=== PATIENT | male | born 1945 | race Caucasian/White ===

== ENCOUNTER 2022-07-04 18:32 | Inpatient (IN) | payer OTHER, MEDICARE ==
[2022-07-04] MEDS ORDERED: PIPERACILLIN/TAZOB 4.5 GM 4.5 GM in DEXTROSE 5%-WATER 100 ML IVPB ONE (18:53)
[2022-07-04] MEDS ORDERED: VANCOMYCIN 1 GM in D5W (PRE-DOCKED) 1,000 MG/250 ML (RESTRICTED TO ID ONLY IVPB ONE (18:53)
[2022-07-04] MEDS ORDERED: PIPERACILLIN/TAZOBACTAM 4.5 GM VIAL IVPB ONE (18:57)
[2022-07-04] MEDS ORDERED: VANCOMYCIN 1,000 MG VIAL (RESTRICTED TO ID ONLY) ONE (18:58)
[2022-07-04 19:27] LABS: HEMOGLOBIN 12.3 G/dL (11.7-16.9); MCH 28.1 pg (25.7-33.7); MCHC 34.2 g/dl (32.0-35.9); MEAN CELL VOLUME 82.3 fl (80-96); MEAN PLT VOLUME 7.9 fl (7.5-11.1); PLATELET COUNT 170.1 10^3/uL (134-434); RBC 4.38 10^6/uL (4.00-5.60); RDW 16.1 % (11.9-15.9); WHITE BLOOD COUNT 12.7 10^3/uL (4.0-10.8)
[2022-07-04] MEDS ORDERED: ACETAMINOPHEN 1000 MG/100 ML BAG IVPB ONE (19:32)
[2022-07-04 19:36] LABS: INR 2.58 (0.83-1.09)
[2022-07-04] MEDS ORDERED: ACETAMINOPHEN INJECTION 100 ML IVPB ONE (19:48)
[2022-07-04 19:51] LABS: BILIRUBIN,TOTAL 0.9 mg/dl (0.2-1); CALCIUM 8.9 mg/dl (8.5-10); TOT PROT 7.4 g/dl (6.4-8.2)
[2022-07-04 20:59] LABS: PLATELET ESTIMATE ADEQUATE
[2022-07-04] MEDS ORDERED: DOCUSATE SODIUM 100 MG CAPSULE (FP) PO PRN (21:03)
[2022-07-04 22:55] VITALS: BMI 24.2
[2022-07-04] MEDS: SODIUM CHLORIDE 1,000 ML IV SCH (23:08)
[2022-07-05] MEDS ORDERED: PIPERACILLIN/TAZOB 2.25 GM 2.25 GM in DEXTROSE 5%-WATER - 50 ML IVPB SCH (02:00)
[2022-07-05] MEDS ORDERED: ACETAMINOPHEN 325 MG TABLET (FP) PO PRN (02:00)
[2022-07-05] MEDS ORDERED: ACETAMINOPHEN 1000 MG/100 ML BAG IVPB PRN (02:00)
[2022-07-05 08:15] LABS: INR 2.41 (0.83-1.09)
[2022-07-05 08:53] LABS: CALCIUM 8.4 mg/dl (8.5-10); CREATININE 1.7 mg/dl (0.55-1.3); PHOSPHOROUS 2.5 mg/dl (2.5-4.9)
[2022-07-05] MEDS: TAMSULOSIN HCL 0.4 MG CAP PO SCH ×2 (09:32→21:08)
[2022-07-05] MEDS: PIPERACILLIN/TAZOB 2.25 GM 2.25 GM in DEXTROSE 5%-WATER - 50 ML IVPB SCH ×3 (09:32→21:08)
[2022-07-05] MEDS: HYDROXYCHLOROQUINE SO4 200 MG TABLET (FP) PO SCH (09:33)
[2022-07-05] MEDS: FINASTERIDE 5 MG TABLET (FP) PO SCH (09:33)
[2022-07-05 09:41] LABS: BASO % 0.3 % (0-2.0); EOS % 0.7 % (0-4.5); HEMOGLOBIN 11.2 GM/dL (11.7-16.9); MCH 27.2 pg (25.7-33.7); MCHC 33.9 g/dl (32.0-35.9); MEAN CELL VOLUME 80.2 fl (80-96); MEAN PLT VOLUME 7.1 fl (7.5-11.1); MONO % 9.1 % (3.8-10.2); NEUT % 85.9 % (42.8-82.8); PLATELET COUNT 162 10^3/uL (134-434); RBC 4.11 M/mm3 (4.00-5.60); WHITE BLOOD COUNT 8.6 K/mm3 (4.0-10.0)
[2022-07-05] MEDS ORDERED: VANCOMYCIN 1 GM in D5W (PRE-DOCKED) 1,000 MG/250 ML (RESTRICTED TO ID ONLY IVPB SCH (10:00)
[2022-07-05 10:26] LABS: ERYTHROCYTE SEDIMENTATION RATE 47 mm/hr (0-20)
[2022-07-05] MEDS: WARFARIN NA 3 MG TABLET PO SCH (19:08)
[2022-07-05 20:48] LABS: URIC ACID CRYSTALS FEW /hpf (NONE SEEN)
[2022-07-06] MEDS: PIPERACILLIN/TAZOB 2.25 GM 2.25 GM in DEXTROSE 5%-WATER - 50 ML IVPB SCH ×4 (03:15→21:38)
[2022-07-06 08:42] LABS: ALBUMIN 3.1 g/dl (3.4-5.0); BILIRUBIN,TOTAL 1.1 mg/dl (0.2-1); CALCIUM 8.1 mg/dl (8.5-10); CREATININE 1.9 mg/dl (0.55-1.3); TOT PROT 6.3 g/dl (6.4-8.2)
[2022-07-06] MEDS: HYDROXYCHLOROQUINE SO4 200 MG TABLET (FP) PO SCH (09:40)
[2022-07-06] MEDS: VANCOMYCIN 1 GRAM (PRE-DOCKED) 1,000 MG/250 ML BAG IVPB SCH (09:40)
[2022-07-06] MEDS: TAMSULOSIN HCL 0.4 MG CAP PO SCH ×2 (09:40→21:39)
[2022-07-06] MEDS: FINASTERIDE 5 MG TABLET (FP) PO SCH (09:40)
[2022-07-06 09:55] LABS: BASO % 0.3 % (0-2.0); HEMATOCRIT 32.6 % (35.4-49); HEMOGLOBIN 10.9 GM/dL (11.7-16.9); LYMPH % 4.4 % (8-40); MCH 26.8 pg (25.7-33.7); MCHC 33.6 g/dl (32.0-35.9); MEAN CELL VOLUME 79.8 fl (80-96); MEAN PLT VOLUME 7.2 fl (7.5-11.1); MONO % 9.3 % (3.8-10.2); PLATELET COUNT 180 10^3/uL (134-434); RBC 4.08 M/mm3 (4.00-5.60); RDW 16.2 % (11.9-15.9); WHITE BLOOD COUNT 9.3 K/mm3 (4.0-10.0)
[2022-07-06] MEDS ORDERED: VANCOMYCIN 1,000 MG in DEXTROSE 5%-WATER - 250 ML IVPB SCH (10:00)
[2022-07-06] MEDS: LACTOBACILLUS ACIDOPHILUS 1 TABLET PO SCH (13:32)
[2022-07-06] MEDS: WARFARIN NA 2.5 MG TABLET PO SCH (17:32)
[2022-07-06] MEDS: SODIUM CHLORIDE 1,000 ML IV SCH (17:34)
[2022-07-07] MEDS: PIPERACILLIN/TAZOB 2.25 GM 2.25 GM in DEXTROSE 5%-WATER - 50 ML IVPB SCH ×4 (03:46→21:21)
[2022-07-07 09:09] LABS: CALCIUM 7.9 mg/dl (8.5-10); CREATININE 1.5 mg/dl (0.55-1.3); MAGNESIUM 2.1 mg/dL (1.8-2.4); PHOSPHOROUS 2.1 mg/dl (2.5-4.9)
[2022-07-07 09:50] LABS: BASO % 0.4 % (0-2.0); EOS % 2.4 % (0-4.5); HEMATOCRIT 30.1 % (35.4-49); HEMOGLOBIN 10.1 GM/dL (11.7-16.9); LYMPH % 6.4 % (8-40); MCH 27.1 pg (25.7-33.7); MCHC 33.7 g/dl (32.0-35.9); MEAN CELL VOLUME 80.3 fl (80-96); MEAN PLT VOLUME 7.3 fl (7.5-11.1); MONO % 10.4 % (3.8-10.2); NEUT % 80.4 % (42.8-82.8); PLATELET COUNT 177 10^3/uL (134-434); RBC 3.74 M/mm3 (4.00-5.60); RDW 15.8 % (11.9-15.9); WHITE BLOOD COUNT 6.5 K/mm3 (4.0-10.0)
[2022-07-07] MEDS ORDERED: POTASSIUM PHOSPHATE 15 MM in SODIUM CHLORIDE 250 ML IVPB ONE (10:00)
[2022-07-07] MEDS ORDERED: SODIUM CHLORIDE 0.45% 1,000 ML IV SCH (11:00)
[2022-07-07] MEDS: TAMSULOSIN HCL 0.4 MG CAP PO SCH ×2 (11:29→21:21)
[2022-07-07] MEDS: FINASTERIDE 5 MG TABLET (FP) PO SCH (11:29)
[2022-07-07] MEDS: LACTOBACILLUS ACIDOPHILUS 1 TABLET PO SCH (11:29)
[2022-07-07] MEDS: HYDROXYCHLOROQUINE SO4 200 MG TABLET (FP) PO SCH (11:29)
[2022-07-07] MEDS: VANCOMYCIN 1 GRAM (PRE-DOCKED) 1,000 MG/250 ML BAG IVPB SCH ×2 (11:30→22:20)
[2022-07-07] MEDS: WARFARIN NA 3 MG TABLET PO SCH (18:16)
[2022-07-08] MEDS: PIPERACILLIN/TAZOB 2.25 GM 2.25 GM in DEXTROSE 5%-WATER - 50 ML IVPB SCH ×4 (03:24→20:56)
[2022-07-08] MEDS: TAMSULOSIN HCL 0.4 MG CAP PO SCH (08:32)
[2022-07-08 08:33] LABS: INR 4.88 (0.83-1.09)
[2022-07-08 08:47] LABS: CREATININE 1.6 mg/dl (0.55-1.3); PHOSPHOROUS 2.7 mg/dl (2.5-4.9)
[2022-07-08 09:56] LABS: BASO % 0.8 % (0-2.0); EOS % 3.3 % (0-4.5); HEMATOCRIT 29.3 % (35.4-49); HEMOGLOBIN 10.1 GM/dL (11.7-16.9); LYMPH % 6.3 % (8-40); MCH 27.4 pg (25.7-33.7); MCHC 34.4 g/dl (32.0-35.9); MEAN CELL VOLUME 79.5 fl (80-96); MEAN PLT VOLUME 7.2 fl (7.5-11.1); MONO % 9.6 % (3.8-10.2); PLATELET COUNT 215 10^3/uL (134-434); RBC 3.68 M/mm3 (4.00-5.60); RDW 16.2 % (11.9-15.9); WHITE BLOOD COUNT 5.7 K/mm3 (4.0-10.0)
[2022-07-08] MEDS: LACTOBACILLUS ACIDOPHILUS 1 TABLET PO SCH (09:57)
[2022-07-08] MEDS: HYDROXYCHLOROQUINE SO4 200 MG TABLET (FP) PO SCH (09:57)
[2022-07-08] MEDS: FINASTERIDE 5 MG TABLET (FP) PO SCH (09:57)
[2022-07-08] MEDS: guaiFENesin/D-METHORPHAN HB 10 ML UNIT-DOSE CUPS PO PRN ×3 (09:57→21:05)
[2022-07-08] MEDS: FLUTICASONE PROP 0.05% 16 GM NASAL SPRAY NS SCH ×2 (10:02→21:03)
[2022-07-08] MEDS: VANCOMYCIN 1 GRAM (PRE-DOCKED) 1,000 MG/250 ML BAG IVPB SCH ×2 (10:03→23:36)
[2022-07-08] MEDS: BENZOCAINE/MENTH/CETYLPYRD CL 1 EACH LOZENGE MM PRN (10:03)
[2022-07-09] MEDS: PIPERACILLIN/TAZOB 2.25 GM 2.25 GM in DEXTROSE 5%-WATER - 50 ML IVPB SCH ×2 (03:35→09:01)
[2022-07-09] MEDS: TAMSULOSIN HCL 0.4 MG CAP PO SCH ×3 (07:15→21:20)
[2022-07-09 08:50] LABS: INR 4.65 (0.83-1.09); PROTHROMBIN TIME (PATIENT) 54.3 SEC (9.7-13.0)
[2022-07-09] MEDS: LACTOBACILLUS ACIDOPHILUS 1 TABLET PO SCH (08:59)
[2022-07-09] MEDS: HYDROXYCHLOROQUINE SO4 200 MG TABLET (FP) PO SCH (09:00)
[2022-07-09] MEDS: FINASTERIDE 5 MG TABLET (FP) PO SCH (09:00)
[2022-07-09 09:04] LABS: BILIRUBIN,TOTAL 0.6 mg/dl (0.2-1); CALCIUM 8.6 mg/dl (8.5-10); CREATININE 1.7 mg/dl (0.55-1.3); PHOSPHOROUS 2.5 mg/dl (2.5-4.9); TOT PROT 6.5 g/dl (6.4-8.2)
[2022-07-09] MEDS: FLUTICASONE PROP 0.05% 16 GM NASAL SPRAY NS SCH ×2 (09:04→21:19)
[2022-07-09 09:28] LABS: BASO % 0.8 % (0-2.0); EOS % 3.5 % (0-4.5); HEMATOCRIT 32.5 % (35.4-49); HEMOGLOBIN 10.6 GM/dL (11.7-16.9); LYMPH % 6.8 % (8-40); MCH 26.3 pg (25.7-33.7); MCHC 32.8 g/dl (32.0-35.9); MEAN CELL VOLUME 80.2 fl (80-96); MEAN PLT VOLUME 6.7 fl (7.5-11.1); MONO % 9.8 % (3.8-10.2); NEUT % 79.1 % (42.8-82.8); PLATELET COUNT 254 10^3/uL (134-434); RBC 4.05 M/mm3 (4.00-5.60); RDW 16.2 % (11.9-15.9); WHITE BLOOD COUNT 6.5 K/mm3 (4.0-10.0)
[2022-07-09] MEDS: AMPICILLIN NA/SULBACTAM NA 3 GM in SODIUM CHLORIDE 100 ML IVPB SCH ×2 (09:51→17:48)
[2022-07-09] MEDS: BENZOCAINE/MENTH/CETYLPYRD CL 1 EACH LOZENGE MM PRN (22:02)
[2022-07-09] MEDS: guaiFENesin/D-METHORPHAN HB 10 ML UNIT-DOSE CUPS PO PRN (22:02)
[2022-07-10] MEDS: AMPICILLIN NA/SULBACTAM NA 3 GM in SODIUM CHLORIDE 100 ML IVPB SCH ×3 (01:44→17:41)
[2022-07-10] MEDS: TAMSULOSIN HCL 0.4 MG CAP PO SCH ×2 (07:59→21:12)
[2022-07-10] MEDS: BENZOCAINE/MENTH/CETYLPYRD CL 1 EACH LOZENGE MM PRN ×2 (08:06→21:12)
[2022-07-10 08:24] LABS: CALCIUM 8.3 mg/dl (8.5-10); CREATININE 1.6 mg/dl (0.55-1.3)
[2022-07-10 08:25] LABS: INR 4.16 (0.83-1.09); PROTHROMBIN TIME (PATIENT) 48.5 SEC (9.7-13.0)
[2022-07-10] MEDS: guaiFENesin/D-METHORPHAN HB 10 ML UNIT-DOSE CUPS PO PRN ×2 (08:26→21:12)
[2022-07-10] MEDS: HYDROXYCHLOROQUINE SO4 200 MG TABLET (FP) PO SCH (10:03)
[2022-07-10] MEDS: LACTOBACILLUS ACIDOPHILUS 1 TABLET PO SCH (10:03)
[2022-07-10] MEDS: FINASTERIDE 5 MG TABLET (FP) PO SCH (10:03)
[2022-07-10] MEDS: FLUTICASONE PROP 0.05% 16 GM NASAL SPRAY NS SCH ×2 (10:11→21:12)
[2022-07-10 13:18] LABS: BASO % 0.8 % (0-2.0); EOS % 3.1 % (0-4.5); HEMATOCRIT 29.6 % (35.4-49); HEMOGLOBIN 9.9 GM/dL (11.7-16.9); LYMPH % 7.6 % (8-40); MCH 26.7 pg (25.7-33.7); MCHC 33.3 g/dl (32.0-35.9); MEAN CELL VOLUME 80.1 fl (80-96); MONO % 11.4 % (3.8-10.2); NEUT % 77.1 % (42.8-82.8); PLATELET COUNT 212 10^3/uL (134-434); RDW 16.2 % (11.9-15.9); WHITE BLOOD COUNT 4.9 K/mm3 (4.0-10.0)
[2022-07-11] MEDS: AMPICILLIN NA/SULBACTAM NA 3 GM in SODIUM CHLORIDE 100 ML IVPB SCH ×3 (01:50→21:56)
[2022-07-11 09:02] LABS: HEMATOCRIT 29.2 % (35.4-49); HEMOGLOBIN 9.5 G/dL (11.7-16.9); MCHC 32.5 g/dl (32.0-35.9); MEAN PLT VOLUME 7.4 fl (7.5-11.1); PLATELET COUNT 174.2 10^3/uL (134-434); RBC 3.52 10^6/uL (4.00-5.60); RDW 16.6 % (11.9-15.9); WHITE BLOOD COUNT 4.5 10^3/uL (4.0-10.8)
[2022-07-11 09:10] LABS: CALCIUM 8.3 mg/dl (8.5-10); CREATININE 1.5 mg/dl (0.55-1.3); MAGNESIUM 1.9 mg/dL (1.8-2.4); PHOSPHOROUS 2.4 mg/dl (2.5-4.9)
[2022-07-11] MEDS: TAMSULOSIN HCL 0.4 MG CAP PO SCH ×2 (09:23→21:55)
[2022-07-11] MEDS: FINASTERIDE 5 MG TABLET (FP) PO SCH (09:23)
[2022-07-11] MEDS: LACTOBACILLUS ACIDOPHILUS 1 TABLET PO SCH (09:23)
[2022-07-11] MEDS: HYDROXYCHLOROQUINE SO4 200 MG TABLET (FP) PO SCH (09:23)
[2022-07-11] MEDS: FLUTICASONE PROP 0.05% 16 GM NASAL SPRAY NS SCH ×2 (09:25→21:55)
[2022-07-11] MEDS: guaiFENesin/D-METHORPHAN HB 10 ML UNIT-DOSE CUPS PO PRN (09:34)
[2022-07-11] MEDS: BENZOCAINE/MENTH/CETYLPYRD CL 1 EACH LOZENGE MM PRN ×2 (09:34→21:56)
[2022-07-11 09:45] LABS: INR 2.79 (0.83-1.09); PROTHROMBIN TIME (PATIENT) 32.4 SEC (9.7-13.0)
[2022-07-11 10:58] LABS: PLATELET ESTIMATE NORMAL
[2022-07-11] MEDS ORDERED: AMPICILLIN NA/SULBACTAM NA 3 GM in SODIUM CHLORIDE 100 ML IVPB SCH (16:45)
[2022-07-11] MEDS: WARFARIN NA 2.5 MG TABLET PO SCH (17:48)
[2022-07-12] MEDS: AMPICILLIN NA/SULBACTAM NA 3 GM in SODIUM CHLORIDE 100 ML IVPB SCH ×3 (05:54→22:15)
[2022-07-12 08:10] LABS: CALCIUM 8.3 mg/dl (8.5-10); CREATININE 1.6 mg/dl (0.55-1.3); PHOSPHOROUS 2.4 mg/dl (2.5-4.9)
[2022-07-12 08:13] LABS: INR 2.65 (0.83-1.09); PROTHROMBIN TIME (PATIENT) 30.8 SEC (9.7-13.0)
[2022-07-12 09:28] LABS: BASO % 0.9 % (0-2.0); EOS % 2.4 % (0-4.5); HEMATOCRIT 27.5 % (35.4-49); HEMOGLOBIN 9.2 GM/dL (11.7-16.9); LYMPH % 9.1 % (8-40); MCH 26.6 pg (25.7-33.7); MCHC 33.4 g/dl (32.0-35.9); MEAN CELL VOLUME 79.5 fl (80-96); MEAN PLT VOLUME 6.6 fl (7.5-11.1); MONO % 11.2 % (3.8-10.2); NEUT % 76.4 % (42.8-82.8); PLATELET COUNT 194 10^3/uL (134-434); RBC 3.47 M/mm3 (4.00-5.60); RDW 15.6 % (11.9-15.9); WHITE BLOOD COUNT 4.3 K/mm3 (4.0-10.0)
[2022-07-12] MEDS: TAMSULOSIN HCL 0.4 MG CAP PO SCH ×2 (09:42→22:15)
[2022-07-12] MEDS: FINASTERIDE 5 MG TABLET (FP) PO SCH (09:42)
[2022-07-12] MEDS: HYDROXYCHLOROQUINE SO4 200 MG TABLET (FP) PO SCH (09:43)
[2022-07-12] MEDS: LACTOBACILLUS ACIDOPHILUS 1 TABLET PO SCH (09:43)
[2022-07-12] MEDS: FLUTICASONE PROP 0.05% 16 GM NASAL SPRAY NS SCH ×2 (09:44→22:15)
[2022-07-12] MEDS: guaiFENesin/D-METHORPHAN HB 10 ML UNIT-DOSE CUPS PO PRN (09:47)
[2022-07-12] MEDS: BENZOCAINE/MENTH/CETYLPYRD CL 1 EACH LOZENGE MM PRN (09:47)
[2022-07-12] MEDS: WARFARIN NA 3 MG TABLET PO SCH (17:34)
[2022-07-12 19:11] VITALS: BP 169/77; PULSE 67; RESP 18; TEMP 98.1
== END 2022-07-12 22:21 | disposition home or self-care (01) | DRG 580 ==
LOC: FER 18:32 → FM/S 20:57
PROVIDERS: ADMIT Internal Medicine; ATTEND Internal Medicine
PROC: 0JH63XZ Insertion of Tunneled Vascular Access Device into Chest Subcutaneous Tissue and Fascia, Percutaneous Approach (ICD-10-PCS; principal; 2022-07-09)
PROC: 02HV33Z Insertion of Infusion Device into Superior Vena Cava, Percutaneous Approach (ICD-10-PCS; 2022-07-09)
PROC: B548ZZA Ultrasonography of Superior Vena Cava, Guidance (ICD-10-PCS; 2022-07-09)
DX: L03.116 Cellulitis of left lower limb (principal); D68.61 Antiphospholipid syndrome; N17.9 Acute kidney failure, unspecified; L97.929 Non-pressure chronic ulcer of unspecified part of left lower leg with unspecified severity; Z86.718 Personal history of other venous thrombosis and embolism; I12.9 Hypertensive chronic kidney disease with stage 1 through stage 4 chronic kidney disease, or unspecified chronic kidney disease; N18.9 Chronic kidney disease, unspecified; N21.0 Calculus in bladder; D64.9 Anemia, unspecified; N40.0 Benign prostatic hyperplasia without lower urinary tract symptoms
CPT/HCPCS: 36415; 36558; 71046-TC-FY; 73630-TC-LT; 73718-TC-LT; 80048; 80053; 80061; 81003; 81015; 82436; 82570; 83036; 83605; 83735; 84100; 84133; 84156; 84300; 85025; 85027; 85610; 85651; 86140; 86850; 86900; 86901; 87040; 87070; 87076; 87086; 87186; 87205; 93005; 93306-TC; 93971-TC; 99285-25; C9803-CS; G0480; U0003; U0005

== ENCOUNTER 2022-07-29 22:15 | Inpatient (IN) | payer OTHER, MEDICARE ==
[2022-07-29 22:26] VITALS: BMI 25.5
[2022-07-30 00:31] LABS: HEMATOCRIT 31.7 % (35.4-49); HEMOGLOBIN 10.7 GM/dL (11.7-16.9); MCH 26.3 pg (25.7-33.7); MCHC 33.6 g/dl (32.0-35.9); MEAN CELL VOLUME 78.4 fl (80-96); PLATELET COUNT 137 10^3/uL (134-434); RBC 4.05 M/mm3 (4.00-5.60); RDW 15.8 % (11.9-15.9)
[2022-07-30 00:50] LABS: INR 2.67 (0.83-1.09); PROTHROMBIN TIME (PATIENT) 30.7 SEC (9.7-13.0)
[2022-07-30 00:53] LABS: ACTIVATED PTT 66.6 SECONDS (25.2-36.5)
[2022-07-30 01:29] LABS: ERYTHROCYTE SEDIMENTATION RATE 44 mm/hr (0-20)
[2022-07-30 01:37] LABS: POTASSIUM 4.9 mmol/L (3.5-5.1)
[2022-07-30 01:39] LABS: ALBUMIN 3.5 g/dl (3.4-5.0); BLOOD UREA NITROGEN 31.8 mg/dL (7-18); CALCIUM 9.3 mg/dL (8.5-10.1)
[2022-07-30 01:42] LABS: CREATININE 1.7 mg/dL (0.55-1.3)
[2022-07-30 01:44] LABS: BILIRUBIN,TOTAL 0.4 mg/dL (0.2-1); TOT PROT 7.1 g/dl (6.4-8.2)
[2022-07-30] MEDS ORDERED: VANCOMYCIN 1 GM in D5W (PRE-DOCKED) 1,000 MG/250 ML (RESTRICTED TO ID ONLY IVPB ONE (01:47)
[2022-07-30] MEDS ORDERED: VANCOMYCIN/WATER FOR INJ (PEG) 1,000 MG/200 ML BAG IVPB ONE (02:50)
[2022-07-30] MEDS ORDERED: LOPERAMIDE HCL 2 MG CAPSULE PO PRN (04:23)
[2022-07-30 05:16] VITALS: RESP 18
[2022-07-30 05:27] LABS: ANISOCYTOSIS 3+; MACROCYTOSIS 0; ROULEAU 1+
[2022-07-30 06:47] LABS: HEMATOCRIT 29.2 % (35.4-49); MCH 26.6 pg (25.7-33.7); MCHC 34.2 g/dl (32.0-35.9); MEAN CELL VOLUME 77.9 fl (80-96); MEAN PLT VOLUME 7.5 fl (7.5-11.1); PLATELET COUNT 129 10^3/uL (134-434); RBC 3.75 M/mm3 (4.00-5.60); RDW 15.9 % (11.9-15.9); RETICULOCYTES 2.05 % (0.5-1.5)
[2022-07-30 06:49] LABS: INR 2.72 (0.83-1.09); PROTHROMBIN TIME (PATIENT) 31.2 SEC (9.7-13.0)
[2022-07-30 06:53] LABS: WHITE BLOOD COUNT 1.9 K/mm3 (4.0-10.0)
[2022-07-30 08:55] LABS: ANISOCYTOSIS 0; HELMET CELLS 0; HOWELL-JOLLY BODIES 0; MACROCYTOSIS 0; OVALOCYTE 0; ROULEAU 0; SICKELED CELLS 0; TARGET CELLS 0; TEAR DROP CELLS 0; TOXIC GRANULATION 0
[2022-07-30] MEDS ORDERED: HYDROXYCHLOROQUINE SO4 200 MG TABLET (FP) PO SCH (10:00)
[2022-07-30] MEDS: TAMSULOSIN HCL 0.4 MG CAP PO SCH (11:08)
[2022-07-30] MEDS: FINASTERIDE 5 MG TABLET (FP) PO SCH (11:09)
[2022-07-30] MEDS: LISINOPRIL 5 MG TABLET PO SCH (11:09)
[2022-07-30] MEDS: MUPIROCIN 2% TOPICAL OINTMENT 22 GM TUBE TP SCH (12:05)
[2022-07-30 12:18] LABS: POTASSIUM 4.5 mmol/L (3.5-5.1)
[2022-07-30 12:20] LABS: ALBUMIN 3.4 g/dl (3.4-5.0); CALCIUM 8.9 mg/dL (8.5-10.1)
[2022-07-30 12:23] LABS: CREATININE 1.7 mg/dL (0.55-1.3)
[2022-07-30 12:25] LABS: BILIRUBIN,TOTAL 0.4 mg/dL (0.2-1); TOT PROT 6.8 g/dl (6.4-8.2)
[2022-07-30] MEDS ORDERED: VANCOMYCIN/WATER 1,250 MG/250 ML BAG (RESTRICTED TO ID ONLY) IVPB SCH ×2 (13:00)
[2022-07-30 16:16] LABS: HIV INTERPRETATION NEGATIVE (NEGATIVE)
[2022-07-30] MEDS ORDERED: WARFARIN NA 2 MG TABLET PO SCH (18:00)
[2022-07-30] MEDS ORDERED: WARFARIN NA 3 MG TABLET PO SCH (18:00)
[2022-07-31 08:48] LABS: HEMATOCRIT 29.9 % (35.4-49); HEMOGLOBIN 10.1 GM/dL (11.7-16.9); MCH 26.4 pg (25.7-33.7); MCHC 33.7 g/dl (32.0-35.9); MEAN CELL VOLUME 78.3 fl (80-96); MEAN PLT VOLUME 7.2 fl (7.5-11.1); PLATELET COUNT 129 10^3/uL (134-434); RBC 3.82 M/mm3 (4.00-5.60); RDW 16.4 % (11.9-15.9); WHITE BLOOD COUNT 2.7 K/mm3 (4.0-10.0)
[2022-07-31 08:49] LABS: INR 2.92 (0.83-1.09); PROTHROMBIN TIME (PATIENT) 33.5 SEC (9.7-13.0)
[2022-07-31 09:49] LABS: ALBUMIN 3.2 g/dl (3.4-5.0); BILIRUBIN,TOTAL 0.5 mg/dL (0.2-1); BLOOD UREA NITROGEN 23.3 mg/dL (7-18); CALCIUM 8.8 mg/dL (8.5-10.1); CREATININE 1.7 mg/dL (0.55-1.3); MAGNESIUM 2.1 mg/dL (1.8-2.4); PHOSPHOROUS 1.8 mg/dL (2.5-4.9); POTASSIUM 4.2 mmol/L (3.5-5.1); TOT PROT 6.3 g/dl (6.4-8.2)
[2022-07-31] MEDS: FINASTERIDE 5 MG TABLET (FP) PO SCH (09:52)
[2022-07-31] MEDS: LISINOPRIL 5 MG TABLET PO SCH (09:52)
[2022-07-31] MEDS: TAMSULOSIN HCL 0.4 MG CAP PO SCH (09:52)
[2022-07-31 10:06] LABS: ANISOCYTOSIS 0; HELMET CELLS 0; HOWELL-JOLLY BODIES 0; MACROCYTOSIS 0; OVALOCYTE 0; ROULEAU 0; SICKELED CELLS 0; TARGET CELLS 0; TEAR DROP CELLS 0; TOXIC GRANULATION 0
[2022-07-31 12:10] VITALS: BP 150/93; PULSE 87; TEMP 97.7
[2022-07-31] MEDS: MUPIROCIN 2% TOPICAL OINTMENT 22 GM TUBE TP SCH (12:24)
== END 2022-07-31 13:25 | disposition home or self-care (01) | DRG 809 ==
LOC: JER 22:15 → JERBED 07-30 01:47 → J7W 07-30 06:28
PROVIDERS: ADMIT Internal Medicine
DX: D70.9 Neutropenia, unspecified (principal); L97.909 Non-pressure chronic ulcer of unspecified part of unspecified lower leg with unspecified severity; N17.9 Acute kidney failure, unspecified; R78.81 Bacteremia; N18.9 Chronic kidney disease, unspecified; N40.0 Benign prostatic hyperplasia without lower urinary tract symptoms; D64.9 Anemia, unspecified; D63.1 Anemia in chronic kidney disease; D68.61 Antiphospholipid syndrome
CPT/HCPCS: 0241U-QW; 15275; 36415; 80053; 83036; 83735; 84100; 85025; 85045; 85610; 85651; 85730; 86140; 86704; 86705; 86803; 87040; 87340; 87389; 87517; 93005; 93010; 99285-25; Q4196

== ENCOUNTER 2023-12-19 09:43 | Inpatient (IN) | payer OTHER, MEDICARE ==
[2023-12-19 11:27] LABS: BASO % 0.9 % (0-2.0); EOS % 1.6 % (0-4.5); HEMATOCRIT 39.2 % (35.4-49); HEMOGLOBIN 13.1 GM/dL (11.7-16.9); LYMPH % 8.6 % (8-40); MCH 27.4 pg (25.7-33.7); MCHC 33.6 g/dl (32.0-35.9); MEAN CELL VOLUME 81.8 fl (80-96); MEAN PLT VOLUME 6.6 fl (7.5-11.1); MONO % 9.8 % (3.8-10.2); NEUT % 79.1 % (42.8-82.8); PLATELET COUNT 253 10^3/uL (134-434); RBC 4.79 M/mm3 (4.00-5.60); RDW 15.1 % (11.9-15.9); WHITE BLOOD COUNT 5.4 K/mm3 (4.0-10.0)
[2023-12-19 11:33] LABS: INR 3.14 (0.83-1.09); PROTHROMBIN TIME (PATIENT) 34.9 SEC (9.7-13.0)
[2023-12-19 11:48] LABS: CHLORIDE 110 mmol/L (98-107); SODIUM 138 mmol/L (136-145)
[2023-12-19 11:49] LABS: ACTIVATED PTT 90.6 SECONDS (25.2-36.5)
[2023-12-19 11:50] LABS: CALCIUM 8.8 mg/dL (8.5-10.1)
[2023-12-19 11:51] LABS: ALBUMIN 3.3 g/dl (3.4-5.0); BLOOD UREA NITROGEN 25.8 mg/dL (7-18); CO2 26 mmol/L (21-32); GLUCOSE,RANDOM 103 mg/dL (74-106)
[2023-12-19 11:54] LABS: CREATININE 1.6 mg/dL (0.55-1.3); SGOT/AST 103 U/L (15-37)
[2023-12-19 11:55] LABS: BILIRUBIN,TOTAL 0.6 mg/dL (0.2-1); TOT PROT 7.6 g/dl (6.4-8.2)
[2023-12-19 11:58] LABS: ALK PHOS 64 U/L (45-117)
[2023-12-19 12:17] LABS: ANION GAP 2 mmol/L (4-13); POTASSIUM 6.4 mmol/L (3.5-5.1); SGPT/ALT 27 U/L (13-61)
[2023-12-19] MEDS ORDERED: PHYTONADIONE 5 MG TABLET ONE (18:13)
[2023-12-19] MEDS: PHYTONADIONE 5 MG TABLET PO ONE (18:24)
[2023-12-19 20:00] VITALS: RESP 18
[2023-12-20 03:35] VITALS: BMI 23.8
[2023-12-20] MEDS: TAMSULOSIN HCL 0.4 MG CAP PO SCH (08:34)
[2023-12-20 08:58] LABS: INR 2.64 (0.83-1.09)
[2023-12-20 09:10] LABS: HEMATOCRIT 37.2 % (35.4-49); HEMOGLOBIN 12.1 GM/dL (11.7-16.9); MCH 26.9 pg (25.7-33.7); MCHC 32.7 g/dl (32.0-35.9); MEAN CELL VOLUME 82.2 fl (80-96); MEAN PLT VOLUME 6.1 fl (7.5-11.1); PLATELET COUNT 239 10^3/uL (134-434); RBC 4.52 M/mm3 (4.00-5.60); RDW 14.8 % (11.9-15.9); WHITE BLOOD COUNT 5.1 K/mm3 (4.0-10.0)
[2023-12-20 09:32] LABS: POTASSIUM 4.5 mmol/L (3.5-5.1)
[2023-12-20 09:42] LABS: ALBUMIN 3.2 g/dl (3.4-5.0); BILIRUBIN,TOTAL 0.7 mg/dL (0.2-1); BLOOD UREA NITROGEN 19.9 mg/dL (7-18); CALCIUM 8.7 mg/dL (8.5-10.1); CREATININE 1.3 mg/dL (0.55-1.3); TOT PROT 6.5 g/dl (6.4-8.2)
[2023-12-20] MEDS: CEFTRIAXONE 1 GM in DEXTROSE 5%-WATER - 50 ML IVPB SCH (09:54)
[2023-12-20] MEDS: HYDROXYCHLOROQUINE SO4 200 MG TABLET (FP) PO SCH (09:54)
[2023-12-20] MEDS: FINASTERIDE 5 MG TABLET (FP) PO SCH (09:54)
[2023-12-20] MEDS: PHYTONADIONE 5 MG TABLET PO ONE (11:33)
[2023-12-20] MEDS ORDERED: GENTAMICIN SO4 80 MG/2 ML VIAL ONE (13:45)
[2023-12-20] MEDS ORDERED: LIDOCAINE HCL 2% (20ML MULTI-DOSE VIAL) ONE (13:46)
[2023-12-20] MEDS ORDERED: LIDOCAINE 1%/EPI 1:100000 (20 ML MULTI DOSE VIAL) ONE (13:46)
[2023-12-20 14:13] LABS: INR 2.4 (0.83-1.09); PROTHROMBIN TIME (PATIENT) 26.4 SEC (9.7-13.0)
[2023-12-20] MEDS ORDERED: BUPIVACAINE HCL/PF 0.5% (5MG/ML) 10 ML VIAL ONE (14:44)
[2023-12-20] MEDS ORDERED: PROPOFOL 20 ML ONE (15:38)
[2023-12-20] MEDS ORDERED: MIDAZOLAM HCL 2 MG/2 ML SINGLE DOSE VIAL ONE (15:38)
[2023-12-20] MEDS: LIDOCAINE HCL 2% (50ML VIAL) INF ONE (15:59)
[2023-12-20] MEDS: BUPIVACAINE HCL/PF 0.5% (5 MG/ML) 30 ML VIAL IJ ONE (16:35)
[2023-12-20] MEDS: MELATONIN 5 MG TABLETS PO ONE (20:27)
[2023-12-21 08:59] LABS: HEMOGLOBIN 12.2 GM/dL (11.7-16.9); MCH 27.6 pg (25.7-33.7); MEAN CELL VOLUME 81.1 fl (80-96); MEAN PLT VOLUME 6.1 fl (7.5-11.1); PLATELET COUNT 231 10^3/uL (134-434); RBC 4.44 M/mm3 (4.00-5.60); RDW 14.5 % (11.9-15.9); WHITE BLOOD COUNT 5.5 K/mm3 (4.0-10.0)
[2023-12-21 09:05] LABS: INR 1.8 (0.83-1.09); PROTHROMBIN TIME (PATIENT) 20.4 SEC (9.7-13.0)
[2023-12-21 09:25] LABS: POTASSIUM 4.3 mmol/L (3.5-5.1)
[2023-12-21 09:27] LABS: CALCIUM 8.8 mg/dL (8.5-10.1)
[2023-12-21 09:28] LABS: ALBUMIN 3.1 g/dl (3.4-5.0); BLOOD UREA NITROGEN 18.5 mg/dL (7-18)
[2023-12-21 09:30] LABS: PHOSPHOROUS 2.6 mg/dL (2.5-4.9)
[2023-12-21 09:31] LABS: CREATININE 1.4 mg/dL (0.55-1.3)
[2023-12-21 09:32] LABS: BILIRUBIN,TOTAL 0.7 mg/dL (0.2-1); TOT PROT 6.4 g/dl (6.4-8.2)
[2023-12-21] MEDS: CEFTRIAXONE 1 GM in DEXTROSE 5%-WATER - 50 ML IVPB SCH (09:48)
[2023-12-21] MEDS: HYDROXYCHLOROQUINE SO4 200 MG TABLET (FP) PO SCH (09:49)
[2023-12-21] MEDS: FINASTERIDE 5 MG TABLET (FP) PO SCH (09:49)
[2023-12-21] MEDS: TAMSULOSIN HCL 0.4 MG CAP PO SCH (09:49)
[2023-12-21] MEDS ORDERED: WARFARIN NA 3 MG TABLET PO SCH (17:15)
[2023-12-21] MEDS: DOXYCYCLINE HYCLATE 100 MG CAPSULE PO SCH (17:27)
[2023-12-21] MEDS ORDERED: MELATONIN 5 MG TABLETS PO ONE (17:42)
[2023-12-21] MEDS ORDERED: ENOXAPARIN NA (PORCINE) 80 MG/0.8 ML DISP.SYRIN SQ SCH (19:30)
[2023-12-21] MEDS: MELATONIN 5 MG TABLETS PO ONE (21:36)
[2023-12-22] MEDS: ENOXAPARIN NA (PORCINE) 80 MG/0.8 ML DISP.SYRIN SQ SCH (05:51)
[2023-12-22 09:24] LABS: HEMATOCRIT 37.3 % (35.4-49); HEMOGLOBIN 12.4 GM/dL (11.7-16.9); MCH 27.1 pg (25.7-33.7); MCHC 33.2 g/dl (32.0-35.9); MEAN CELL VOLUME 81.5 fl (80-96); MEAN PLT VOLUME 6.4 fl (7.5-11.1); PLATELET COUNT 200 10^3/uL (134-434); RBC 4.57 M/mm3 (4.00-5.60); RDW 14.4 % (11.9-15.9); WHITE BLOOD COUNT 6.6 K/mm3 (4.0-10.0)
[2023-12-22 09:32] LABS: INR 1.61 (0.83-1.09); PROTHROMBIN TIME (PATIENT) 17.9 SEC (9.7-13.0)
[2023-12-22 10:21] LABS: BILIRUBIN,TOTAL 0.6 mg/dL (0.2-1); BLOOD UREA NITROGEN 19.4 mg/dL (7-18); CALCIUM 9.4 mg/dL (8.5-10.1); CREATININE 1.5 mg/dL (0.55-1.3); PHOSPHOROUS 2.5 mg/dL (2.5-4.9); POTASSIUM 4.5 mmol/L (3.5-5.1); TOT PROT 6.4 g/dl (6.4-8.2)
[2023-12-22] MEDS ORDERED: VANCOMYCIN 1,000 MG in DEXTROSE 5%-WATER - 250 ML IVPB SCH (14:15)
[2023-12-22] MEDS: VANCOMYCIN/WATER FOR INJ (PEG) 1,000 MG/200 ML BAG IVPB SCH (15:44)
[2023-12-22] MEDS: WARFARIN NA 2.5 MG TABLET PO SCH (18:30)
[2023-12-23 09:34] LABS: HEMATOCRIT 36.1 % (35.4-49); MCH 26.7 pg (25.7-33.7); MCHC 33.1 g/dl (32.0-35.9); MEAN CELL VOLUME 80.9 fl (80-96); MEAN PLT VOLUME 6.4 fl (7.5-11.1); PLATELET COUNT 208 10^3/uL (134-434); RBC 4.47 M/mm3 (4.00-5.60); RDW 14.2 % (11.9-15.9); WHITE BLOOD COUNT 5.9 K/mm3 (4.0-10.0)
[2023-12-23 09:35] LABS: INR 1.53 (0.83-1.09); PROTHROMBIN TIME (PATIENT) 17.4 SEC (9.7-13.0)
[2023-12-23] MEDS ORDERED: WARFARIN NA 2.5 MG TABLET PO SCH (10:00)
[2023-12-23 10:41] LABS: BLOOD UREA NITROGEN 22.2 mg/dL (7-18)
[2023-12-23 10:43] LABS: CREATININE 1.5 mg/dL (0.55-1.3)
[2023-12-23 10:45] LABS: BILIRUBIN,TOTAL 0.5 mg/dL (0.2-1); TOT PROT 6.8 g/dl (6.4-8.2)
[2023-12-23 13:37] VITALS: BP 134/82; PULSE 90; TEMP 97.9
[2023-12-23] MEDS ORDERED: VANCOMYCIN/WATER FOR INJ (PEG) 1,000 MG/200 ML BAG IVPB SCH (15:00)
== END 2023-12-23 15:55 | disposition home or self-care (01) | DRG 475 ==
LOC: JER 09:43 → JERBED 13:49 → J6S 12-20 02:08
PROVIDERS: ADMIT Internal Medicine; ATTEND Internal Medicine
PROC: 0Y6N0ZB Detachment at Left Foot, Partial 2nd Ray, Open Approach (ICD-10-PCS; principal; 2023-12-20 15:30)
DX: M86.8X7 Other osteomyelitis, ankle and foot (principal); D68.61 Antiphospholipid syndrome; L03.116 Cellulitis of left lower limb; L97.529 Non-pressure chronic ulcer of other part of left foot with unspecified severity; N40.0 Benign prostatic hyperplasia without lower urinary tract symptoms; I12.9 Hypertensive chronic kidney disease with stage 1 through stage 4 chronic kidney disease, or unspecified chronic kidney disease; N18.9 Chronic kidney disease, unspecified; D64.9 Anemia, unspecified; E87.5 Hyperkalemia
CPT/HCPCS: 36415; 71046-TC-FY; 73630-TC-LT; 73660-TC-LT-FY; 80053; 83735; 84100; 84132; 85025; 85027; 85610; 85651; 85730; 86140; 86850; 86900; 86901; 87040; 87070; 87075; 87186; 87205; 88305-TC; 88311-TC; 93005; 93010; 93971-TC; 94760; 97116-GP; 97162-GP; 99285-25